=== PATIENT | female | born 1945 | race Two or more races ===

== ENCOUNTER 2021-11-07 07:39 | Outpatient (CLI) | payer OTHER | END 2021-11-07 07:46 | disposition home or self-care (01) | LOC: MRI 07:39 | PROVIDERS: ATTEND Internal Medicine Gastroenterology | DX: K76.0 Fatty (change of) liver, not elsewhere classified (principal); R10.32 Left lower quadrant pain | CPT/HCPCS: 74183; A9575; 74182 ==

== ENCOUNTER → 2022-06-02 | Outpatient (CLI) | payer OTHER | END | disposition home or self-care (01) | LOC: TOM 11:26 | PROVIDERS: ATTEND Urology | DX: N20.0 Calculus of kidney (principal) ==

== ENCOUNTER 2022-12-15 07:31 | Outpatient (CLI) | payer OTHER | END 2022-12-15 07:53 | disposition home or self-care (01) | LOC: TOM 07:31 | PROVIDERS: ATTEND Internal Medicine Gastroenterology | DX: R10.32 Left lower quadrant pain (principal) | CPT/HCPCS: 74177; Q9965 ==